=== PATIENT | male | born 1975 | race Caucasian/White ===

== ENCOUNTER 2022-10-02 09:05 | Outpatient (REF) | payer BC, SELFPAY | END 2022-10-02 09:06 | disposition home or self-care (01) | LOC: HO.BBR 09:05 | PROVIDERS: Visit Provider Urology | DX: D75.1 Secondary polycythemia (principal) | CPT/HCPCS: 85014; 85018; 99195 ==

== ENCOUNTER 2023-01-02 12:00 | Outpatient (REF) | payer BC, SELFPAY | END 2023-01-02 12:01 | disposition home or self-care (01) | LOC: HO.BBR 12:00 | PROVIDERS: Visit Provider Urology | DX: D75.1 Secondary polycythemia (principal) | CPT/HCPCS: 85018; 99195 ==

== ENCOUNTER 2023-04-05 13:05 | Outpatient (REF) | payer BC, SELFPAY | END 2023-04-05 13:06 | disposition home or self-care (01) | LOC: HO.BBR 13:05 | PROVIDERS: Visit Provider Urology | DX: D75.1 Secondary polycythemia (principal) | CPT/HCPCS: 85014; 85018; 99195 ==

== ENCOUNTER 2023-07-12 10:58 | Outpatient (REF) | payer BC, SELFPAY | END 2023-07-12 10:59 | disposition home or self-care (01) | LOC: HO.BBR 10:58 | PROVIDERS: Visit Provider Urology | DX: D75.1 Secondary polycythemia (principal) | CPT/HCPCS: 85018; 99195 ==

== ENCOUNTER 2023-12-05 12:05 | Outpatient (REF) | payer BC, SELFPAY | END 2023-12-05 12:06 | disposition home or self-care (01) | LOC: HO.BBR 12:05 | PROVIDERS: Visit Provider Urology | DX: D45 Polycythemia vera (principal) | CPT/HCPCS: 85014; 85018; 99195 ==

== ENCOUNTER 2024-02-21 13:57 | Outpatient (REF) | payer BC, SELFPAY | END 2024-02-21 13:58 | disposition home or self-care (01) | LOC: HO.BBR 13:57 | PROVIDERS: Visit Provider Urology | DX: D75.1 Secondary polycythemia (principal) | CPT/HCPCS: 85018; 99195 ==

== ENCOUNTER 2024-04-24 12:05 | Outpatient (REF) | payer BC, SELFPAY | END 2024-04-24 12:06 | disposition home or self-care (01) | LOC: HO.BBR 12:05 | PROVIDERS: Visit Provider Urology | DX: D75.1 Secondary polycythemia (principal) | CPT/HCPCS: 85018; 99195 ==

== ENCOUNTER 2024-07-10 12:02 | Outpatient (REF) | payer BC, SELFPAY | END 2024-07-10 12:03 | disposition home or self-care (01) | LOC: HO.BBR 12:02 | PROVIDERS: Visit Provider Urology | DX: D75.1 Secondary polycythemia (principal) | CPT/HCPCS: 85018; 99195 ==

== ENCOUNTER 2024-09-11 12:20 | Outpatient (REF) | payer BC, SELFPAY | END 2024-09-11 12:21 | disposition home or self-care (01) | LOC: HO.BBR 12:20 | PROVIDERS: Visit Provider Urology | DX: D75.1 Secondary polycythemia (principal) | CPT/HCPCS: 85018; 99195 ==

== ENCOUNTER 2024-11-13 12:34 | Outpatient (REF) | payer BC, SELFPAY | END 2024-11-13 12:35 | disposition home or self-care (01) | LOC: HO.BBR 12:34 | PROVIDERS: Visit Provider Urology | DX: D75.1 Secondary polycythemia (principal) | CPT/HCPCS: 85014; 85018; 99195 ==

== ENCOUNTER 2024-12-31 11:01 | Outpatient (REF) | payer BC, SELFPAY | END 2024-12-31 11:02 | disposition home or self-care (01) | LOC: HO.BBR 11:01 | PROVIDERS: Visit Provider Urology | DX: D75.1 Secondary polycythemia (principal) | CPT/HCPCS: 85018; 99195 ==

== ENCOUNTER 2025-02-12 13:04 | Outpatient (REF) | payer BC, SELFPAY | END 2025-02-12 13:05 | disposition home or self-care (01) | LOC: HO.BBR 13:04 | PROVIDERS: Visit Provider Urology | DX: D75.1 Secondary polycythemia (principal) | CPT/HCPCS: 85018; 99195 ==

== ENCOUNTER 2025-03-26 12:04 | Outpatient (REF) | payer BC, SELFPAY | END 2025-03-26 12:05 | disposition home or self-care (01) | LOC: HO.BBR 12:04 | PROVIDERS: Visit Provider Urology | DX: D75.1 Secondary polycythemia (principal) | CPT/HCPCS: 85018; 99195 ==

== ENCOUNTER 2025-05-07 13:03 | Outpatient (REF) | payer BC, SELFPAY | END 2025-05-07 13:04 | disposition home or self-care (01) | LOC: HO.BBR 13:03 | PROVIDERS: Visit Provider Urology | DX: Z13.89 Encounter for screening for other disorder (principal) ==

== ENCOUNTER 2025-06-18 13:02 | Outpatient (REF) | payer BC, SELFPAY | END 2025-06-18 13:03 | disposition home or self-care (01) | LOC: HO.BBR 13:02 | PROVIDERS: Visit Provider Urology | DX: D45 Polycythemia vera (principal) | CPT/HCPCS: 85018; 99195 ==